=== PATIENT | male | born 2000 | race Hispanic/Latino ===

== ENCOUNTER 2024-06-01 21:34 | Emergency (ER) | payer SELFPAY ==
[2024-06-01] MEDS ORDERED: Acetaminophen 500 MG TAB ONE (21:49)
[2024-06-01] MEDS ORDERED: Ibuprofen 800 MG TAB ONE (21:50)
== END 2024-06-01 22:35 | disposition home or self-care (01) ==
LOC: ERS 21:34
DX: J10.1 Influenza due to other identified influenza virus with other respiratory manifestations (principal); F17.290 Nicotine dependence, other tobacco product, uncomplicated
CPT/HCPCS: 87081; 87428; 87430; 99283